=== PATIENT | female | born 1985 | race Caucasian/White ===

== ENCOUNTER 2017-03-17 08:40 | Emergency (ER) | payer OTHER ==
[2017-03-17 08:50] VITALS: BMI 24.7
--- NOTE | 2017-03-17 08:52 | PDOC ---
Attending Attestation - Resident Resident Name: Inocencio Brandt - HPI HPI: 03/17/17 11:26 Pt presents to the ED complaining of the acute onset of RLQ pain that radiates to the R flank this AM. Also complains of one episode of non bloody non bilious vomiting. - Physicial Exam PE: 03/17/17 11:29 No abdominal tenderness or CVA tednerness on my exam. Appeared uncomfortable on arrival. - Medical Decision Making 03/17/17 11:30 Pt presents to the ED complaining of the acute onset of RLQ pain. REsolved after pain meds in the ED. Differential included renal stone, less likely ectopic or appendicitis. Labs are within normal limits, US is negative for appendicits or hydronephrosis. Will discharge home.
[2017-03-17] MEDS ORDERED: morphine CARPU-JECT 4 MG/1 ML DISP.SYRIN ONE (08:56)
[2017-03-17] MEDS ORDERED: ONDANSETRON 4 MG/2 ML VIAL IVPUSH ONE (08:56)
[2017-03-17] MEDS ORDERED: morphine CARPU-JECT 4 MG/1 ML DISP.SYRIN IVPUSH ONE (08:56)
--- NOTE | 2017-03-17 09:36 | PDOC ---
History of Present Illness - General Chief Complaint: Pain Stated Complaint: ABD PAIN Time Seen by Provider: 03/17/17 08:51 History Source: Patient Exam Limitations: No Limitations - History of Present Illness Initial Comments: 03/17/17 09:29 The patient is a 32F with no PMH who presents to the ED in severe pain. She states that her pain is located in her LLQ. She woke up this morning and 20 minutes later felt this acute onset sharp pain that does not radiate, has been constant, and is getting worse. She has had no trauma to the area and does not feel pain anywhere else. She has no hx of kidney stones. Her LMP was at the end of February. She is sexually active with her boyfriend and uses condoms as contraception. ROS+: abdominal pain, nausea, vomiting x2 NBNB ROS-: CP, SOB, fever, chills, diarrhea, constipation, headache, weakness, tingling, dysuria, vaginal discharge Meds: none Surg: L wrist years ago Allergies: NKDA Social: does not smoke, drink, or use recreational drugs Past History - Past Medical History Allergies/Adverse Reactions: Allergies Allergy/AdvReac Type Severity Reaction Status Date / Time No Known Allergies Allergy Verified 03/17/17 08:46 Home Medications: Ambulatory Orders NK [No Known Home Medication] 03/17/17 Other medical history: none - Psycho/Social/Smoking Cessation Hx Anxiety: No Suicidal Ideation: No Smoking History: Never smoked Have you smoked in the past 12 months: No Information on smoking cessation initiated: No Hx Alcohol Use: Yes (social) Drug/Substance Use Hx: No Substance Use Type: None Review of Systems - Review of Systems Able to Perform ROS?: Yes Is the patient limited U[place]bek proficient: No Constitutional: No: Chills, Diaphoresis, Fever Respiratory: No: Cough, Shortness of Breath Cardiac (ROS): No: Chest Pain ABD/GI: Yes: Nausea, Vomiting, Other (LLQ abdominal pain). No: Constipated, Diarrhea : No: Dysuria, Discharge Neurological: No: Headache, Numbness, Tingling, Weakness *Physical Exam - Vital Signs Last Vital Signs Temp Pulse Resp BP Pulse Ox 97.8 F 97 H 18 119/86 100 03/17/17 08:47 03/17/17 08:47 03/17/17 08:47 03/17/17 08:47 03/17/17 08:47 - Physical Exam General Appearance: Yes: Nourished, Moderate Distress HEENT: positive: Normal Voice Respiratory/Chest: positive: Lungs Clear, Normal Breath Sounds. negative: Respiratory Distress Cardiovascular: positive: Regular Rhythm, Regular Rate, S1, S2 Female Pelvic Exam: positive: normal external exam, cervical os closed, normal adnexa, normal size ovaries. negative: CMT, discharge, Bartholin mass, adnexal tenderness, vaginal bleeding Gastrointestinal/Abdominal: positive: Flat, Soft. negative: Tender Musculoskeletal: positive: CVA Tenderness, CVA Tenderness (R). negative: CVA Tenderness (L) Extremity: positive: Normal Inspection, Normal Range of Motion. negative: Swelling Integumentary: positive: Dry, Warm Neurologic: positive: Fully Oriented, Alert, Normal Mood/Affect ED Treatment Course - LABORATORY CBC & Chemistry Diagram: 03/17/17 10:05 03/17/17 10:05 - Medications Given in the ED: ED Medications Discontinued Medications Generic Name Dose Route Start Last Admin Trade Name Rukhsana PRN Reason Stop Dose Admin Morphine Sulfate 4 mg 03/17/17 08:56 03/17/17 08:58 Morphine Injection - IVPUSH 03/17/17 08:57 4 mg ONCE ONE Administration Ondansetron HCl 4 mg 03/17/17 08:56 03/17/17 08:58 Zofran Injection IVPUSH 03/17/17 08:57 4 mg ONCE ONE Administration Medical Decision Making - Medical Decision Making 03/17/17 09:36 Patient is a 31F with no PMH who presents to the ED with RLQ abdominal pain and R CVA tenderness. On my differential is: ectopic , UTI, PID, appendicitis. I have ordered a u-preg and will perform a pelvic exam to r/o STI infection. 03/17/17 10:06 Patient had a pelvic exam and GC/chla cultures were sent. Pelvic exam is benign. Patient states she is feeling much better after morphine. 03/17/17 12:18 Patient had trace leuk esterase in urine but has no urinary complaints whatsoever. She is comfortable with discharge and knows to return if symptoms worsen. *DC/Admit/Observation/Transfer Diagnosis at time of Disposition: Flank pain - Discharge Dispostion Disposition: HOME Condition at time of disposition: Stable Admit: No - Attestations Physician Attestion: 03/17/17 12:19 I, Dr. Inocencio Brandt, attest that this document has been prepared under my direction and personally reviewed by me in its entirety. I further attest, that it accurately reflects all work, treatment, procedures and medical decision -making performed by me.
[2017-03-17 10:01] LABS: URINE APPEARANCE CLOUDY; URINE BILIRUBIN NEGATIVE (NEGATIVE); URINE BLOOD NEGATIVE (NEGATIVE); URINE COLOR YELLOW; URINE GLUCOSE (UA) NEGATIVE (NEGATIVE); URINE KETONE 1+ (NEGATIVE); URINE NITRITE NEGATIVE (NEGATIVE); URINE PROTEIN NEGATIVE (NEGATIVE); URINE UROBILINOGEN NEGATIVE E.U./dl (0.2-1.0)
[2017-03-17 10:02] LABS: URINE LEUK ESTERASE TRACE (NEGATIVE)
[2017-03-17 10:07] LABS: GRANULAR CASTS 4 /lpf
[2017-03-17 10:23] LABS: MCH 29.6 pg (25.7-33.7); MCHC 33.4 g/dl (32.0-36.0); MEAN CELL VOLUME 88.8 fl (80-96); MEAN PLT VOLUME 9.9 fl (7.5-11.1); PLATELET COUNT 278 K/MM3 (134-434); WHITE BLOOD COUNT 10.3 K/mm3 (4.0-10.0)
[2017-03-17 10:52] LABS: ALBUMIN 4.5 g/dl (3.4-5.0); ALK PHOS 66 U/L (45-117); ANION GAP 11 (8-16); BILIRUBIN,TOTAL 0.2 mg/dL (0.2-1.0); CALCIUM 9.4 mg/dL (8.5-10.1); CO2 22 mmol/L (21-32); CREATININE 0.7 mg/dL (0.55-1.02); GLUCOSE,RANDOM 119 mg/dL (74-106); SGOT/AST 14 U/L (15-37); SGPT/ALT 29 U/L (12-78); TOT PROT 7.9 g/dl (6.4-8.2)
[2017-03-17 12:54] VITALS: BP 126/74; PULSE 68; TEMP 98.3
== END 2017-03-17 12:54 | disposition home or self-care (01) ==
LOC: JER 08:40
PROC: 3E033NZ Introduction of Analgesics, Hypnotics, Sedatives into Peripheral Vein, Percutaneous Approach (ICD-10-PCS; principal; 2017-03-17)
PROC: 3E033GC Introduction of Other Therapeutic Substance into Peripheral Vein, Percutaneous Approach (ICD-10-PCS; 2017-03-17)
DX: R10.31 Right lower quadrant pain (principal)
CPT/HCPCS: 36415; 76705-TC; 76856-TC; 80053; 81003; 81015; 84703; 85027; 87491; 87591; 99282-25